=== PATIENT | male | born 1990 | race Caucasian/White ===

== ENCOUNTER 2018-10-16 11:27 | Inpatient (IN) ==
[2018-10-16 17:31] LABS: UR AMPHETAMINES QUAL NONE DETECTED (NONE DETECT); UR BARBITUATES QUAL NONE DETECTED (NONE DETECT); UR BENZODIAZEPIN QUAL PRESUMPTIVE POSITIVE (NONE DETECT); UR COCAINE QUAL NONE DETECTED (NONE DETECT); UR METHADONE QUAL PRESUMPTIVE POSITIVE (NONE DETECT); UR METHAMPHETAMINE QUAL NONE DETECTED (NONE DETECT); UR OPIATES QUAL NONE DETECTED (NONE DETECT); UR OXYCODONE QUAL NONE DETECTED (NONE DETECT); UR PCP QUAL NONE DETECTED (NONE DETECT); UR PROPOXYPHENE QUAL NONE DETECTED (NONE DETECT); UR TCA QUAL NONE DETECTED (NONE DETECT)
[2018-10-16 17:40] LABS: URINE SOURCE CLEAN CATCH
[2018-10-16 17:52] LABS: BILIRUBIN URINE NEGATIVE (NEGATIVE); BLOOD URINE NEGATIVE (NEGATIVE); CLARITY CLEAR (CLEAR); COLOR YELLOW; GLUCOSE URINE NEGATIVE (NEGATIVE); KETONE URINE NEGATIVE (NEGATIVE); LEUKOCYTES URINE TRACE (NEGATIVE); NITRITE URINE NEGATIVE (NEGATIVE); PROTEIN URINE NEGATIVE (NEGATIVE); UROBILINOGEN URINE NORMAL
[2018-10-16 17:58] LABS: URINE BACTERIA 1+ /HFP; URINE CAST NONE SEEN /LPF; URINE CRYSTAL NONE SEEN /HPF; URINE EPITHELIAL CELLS <10 /HPF (<10); URINE WBC <10 /HPF (<10); URINE YEAST NONE SEEN /HPF
[2018-10-16 18:00] LABS: UR CANNABINOIDS QUAL NONE DETECTED (NONE DETECT)
[2018-10-16] MEDS ORDERED: SENOKOT PO PRN (18:21)
[2018-10-16] MEDS ORDERED: LIBRIUM PO PRN (18:21)
[2018-10-16] MEDS ORDERED: DESYREL PO PRN (18:21)
[2018-10-16] MEDS ORDERED: IMODIUM PO PRN (18:21)
[2018-10-16] MEDS ORDERED: D5W 1,000 ML IV PRN (18:21)
[2018-10-16] MEDS ORDERED: PHENOBARBITAL IV PRN (18:21)
[2018-10-16] MEDS ORDERED: ZOFRAN IM PRN (18:21)
[2018-10-16] MEDS ORDERED: TUBERSOL ID ONE (18:21)
[2018-10-16] MEDS ORDERED: MAALOX PLUS LIQUID PO PRN (18:21)
[2018-10-16] MEDS ORDERED: DULCOLAX PR PRN (18:21)
[2018-10-16] MEDS ORDERED: BENTYL PO PRN (18:21)
[2018-10-16 19:04] LABS: HEMATOCRIT 39.8 % (42.0-52.0); HEMOGLOBIN 12.9 g/dL (14.0-18.0); MCH 28.5 PG (27-31); MCHC 32.4 g/dL (33-37); MCV 88.1 FL (81-99); MPV 9.2 FL (7.4-10.4); RBC 4.52 XMIL (4.7-6.1); RDW 12.7 % (11.5-14.5); WBC 5.85 X1000 (4.8-10.8)
[2018-10-16 19:15] LABS: INR 0.9; PROTIME 12.6 Seconds (11.0-16.0)
[2018-10-16 19:17] LABS: AMYLASE 58 U/L (20-200); LIPASE 23 U/L (13-60)
[2018-10-16 19:20] LABS: AGAP 9; ALKALINE PHOSPHATASE 145 U/L (32-122); BUN 11 mg/dL (8-22); CALCIUM 8.5 mg/dL (8.8-10.2); CHLORIDE 100 mmol/L (98-107); COSMO 281; CREATININE 0.7 mg/dL (0.7-1.2); ESTIMATED GFR > 60; GLUCOSE 72 mg/dL (70-104); GOT 147 U/L (10-34); GPT 221 U/L (10-44); POTASSIUM 4.8 mmol/L (3.5-5.1); SODIUM 142 mmol/L (136-145); TCO2 33 mmol/L (25-35); TOTAL PROTEIN 7.1 g/dL (6.3-8.3)
[2018-10-16] MEDS: LIBRIUM PO SCH (21:33)
[2018-10-17] MEDS: LIBRIUM PO SCH ×4 (00:40→18:03)
[2018-10-17] MEDS: PROTONIX PO SCH (06:38)
[2018-10-17] MEDS: THERA M PLUS PO SCH (09:47)
[2018-10-17] MEDS: FOLIC ACID PO SCH (09:47)
[2018-10-17] MEDS: VITAMIN B-1 PO SCH (09:47)
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
[2018-10-17] MEDS: NICODERM PATCH TD PRN (13:49)
--- NOTE | 2018-10-17 14:33 | PROGRESS NOTE ---
DATE: 10/17/2018 SUBJECTIVE: The patient states that he is feeling a little bit better. Denies any current fevers or chills. States his muscle aches have improved. OBJECTIVE: Vital Signs: Temperature 97.1 pulse 61, respiratory rate 18, blood pressure 114/59. General: The patient is awake, alert. He is in no distress. HEENT: Normocephalic. Neck: Supple. Cardiovascular: Regular rate. No murmurs. Chest: Clear, nonlabored. Abdomen: Soft, nondistended. Extremities: Moves all extremities. Neurologic: No changes. ASSESSMENT: 1. Nausea and vomiting. 2. Abdominal pain. 3. Myalgias. 4. Paresthesias. 5. Paroxysmal sweating. 6. Opiate abuse. 7. Others. PLAN: We will continue the patient in the hospital. Continue to follow. We will continue Librium taper. Further orders as needed. Continue counseling. cc: Benedict Daniels MD
[2018-10-18] MEDS: LIBRIUM PO SCH ×3 (02:30→17:45)
[2018-10-18] MEDS: TYLENOL PO PRN (02:36)
[2018-10-18] MEDS: PROTONIX PO SCH (06:33)
[2018-10-18 07:08] LABS: HEMATOCRIT 43.5 % (42.0-52.0); HEMOGLOBIN 14.2 g/dL (14.0-18.0); MCH 28.9 PG (27-31); MCHC 32.6 g/dL (33-37); MCV 88.4 FL (81-99); MPV 9.4 FL (7.4-10.4); RBC 4.92 XMIL (4.7-6.1); RDW 12.7 % (11.5-14.5); WBC 4.85 X1000 (4.8-10.8)
[2018-10-18 07:30] LABS: AGAP 7; ALBUMIN 3.8 g/dL (3.5-5.0); ALKALINE PHOSPHATASE 133 U/L (32-122); BUN 9 mg/dL (8-22); CALCIUM 9.1 mg/dL (8.8-10.2); CHLORIDE 103 mmol/L (98-107); COSMO 278; CREATININE 0.6 mg/dL (0.7-1.2); ESTIMATED GFR > 60; GLUCOSE 71 mg/dL (70-104); GOT 183 U/L (10-34); GPT 242 U/L (10-44); POTASSIUM 4.9 mmol/L (3.5-5.1); SODIUM 141 mmol/L (136-145); TCO2 31 mmol/L (25-35); TOTAL PROTEIN 7.2 g/dL (6.3-8.3)
[2018-10-18] MEDS ORDERED: RELISTOR SUBQ ONE (09:35)
[2018-10-18] MEDS: VITAMIN B-1 PO SCH (10:00)
[2018-10-18] MEDS: FOLIC ACID PO SCH (10:00)
[2018-10-18] MEDS: THERA M PLUS PO SCH (10:00)
[2018-10-18] MEDS: ATARAX PO PRN (10:10)
--- NOTE | 2018-10-18 11:08 | Diag Imaging Result Doc PS360 ---
EXAM: KUB ABDOMEN INDICATION: pain TECHNIQUE: 2 views COMPARISON: None. FINDINGS: There is abundant stool throughout the colon suggesting possible moderate to severe constipation. There is no obstructive bowel pattern. There is no evidence of large volume free abdominal gas. There is no discrete organomegaly. IMPRESSION: Suggestion of constipation. Electronically signed by Franko Norris 10/18/2018 11:06 AM
[2018-10-19] MEDS: LIBRIUM PO SCH ×3 (02:40→22:41)
[2018-10-19] MEDS: PROTONIX PO SCH (06:02)
[2018-10-19] MEDS: VITAMIN B-1 PO SCH (09:10)
[2018-10-19] MEDS: THERA M PLUS PO SCH (09:10)
[2018-10-19] MEDS: FOLIC ACID PO SCH (09:10)
[2018-10-19] MEDS: MOTRIN PO PRN ×2 (09:26→22:50)
--- NOTE | 2018-10-19 11:34 | PROGRESS NOTE ---
DATE: 10/18/2018 SUBJECTIVE: Patient notes overall he is doing a lot better. Still having some withdrawal symptoms, but symptoms have improved. States he is having abdominal pain. States he has had chronic constipation due to the methadone and has not had a bowel movement the past several days. OBJECTIVE: Vital Signs: Reviewed. He is afebrile. Temperature 97.5 degrees pulse 61, respiratory rate 18, blood pressure 114/59. General: Patient is awake, alert, currently in no distress. HEENT: Normocephalic. Neck: Supple. Cardiovascular: Regular rate. Chest: Nonlabored, clear. Abdomen: Nondistended. Extremities: Moves all extremities. ASSESSMENT: 1. Hepatitis C with acute and likely chronic elevations of his liver functions. 2. Constipation, due to chronic opioid use. We will add Relistor. 3. Polysubstance use and abuse. We will continue Librium taper and continue to follow. cc: Benedict Daniels MD
[2018-10-19] MEDS ORDERED: SUBUTEX SL ONE (12:07)
[2018-10-19 12:53] LABS: HEPATITIS PROFILE ACUTE SEE COMMENTS
--- NOTE | 2018-10-19 13:26 | PROGRESS NOTE ---
DATE: 10/19/2018 SUBJECTIVE: Patient notes that he had increased withdrawal symptoms last night with muscle aches, sweating, diarrhea, and fatigue. PHYSICAL EXAMINATION: Vital Signs: Reviewed. General: He is awake, alert. He is in no current respiratory distress. HEENT: Normocephalic. Neck: Supple. Cardiovascular: Regular rate. No murmurs. Chest: Clear. Abdomen: Soft. Extremities: Moves all extremities. ASSESSMENT: 1. Nausea and vomiting. 2. Abdominal pain. 3. Myalgias. 4. Paresthesias. 5. Opiate withdrawal, methadone. PLAN: We will add a small dose of Subutex to see if we can get Mr. Chacko back under control from his withdrawal symptoms. Discussed with him that methadone is quite difficult to come off of and takes a longer period of time. We will use low-dose Subutex as well as Librium and follow. cc: Benedict Daniels MD
[2018-10-19] MEDS: SINEMET 25/100 PO PRN (15:05)
[2018-10-19] MEDS: ATARAX PO PRN ×2 (15:05→22:41)
[2018-10-19] MEDS ORDERED: TORADOL IV ONE (15:13)
[2018-10-19] MEDS ORDERED: LIBRIUM PO ONE (15:43)
[2018-10-19] MEDS: ROBAXIN PO PRN (18:06)
[2018-10-19] MEDS ORDERED: SUBUTEX SL SCH (21:00)
[2018-10-19] MEDS: SEROQUEL PO PRN (21:03)
[2018-10-20] MEDS: PROTONIX PO SCH (06:10)
[2018-10-20] MEDS ORDERED: TORADOL IV PRN (08:05)
[2018-10-20] MEDS: THERA M PLUS PO SCH (08:08)
[2018-10-20] MEDS: FOLIC ACID PO SCH (08:09)
[2018-10-20] MEDS: VITAMIN B-1 PO SCH (08:09)
[2018-10-20] MEDS ORDERED: SUBUTEX SL SCH (09:00)
[2018-10-20] MEDS: LIBRIUM PO SCH ×3 (09:19→18:10)
[2018-10-20] MEDS: ROBAXIN PO PRN (12:06)
[2018-10-20] MEDS: TYLENOL PO PRN (12:06)
--- NOTE | 2018-10-20 19:28 | PROGRESS NOTE ---
DATE: 10/20/2018 SUBJECTIVE: Patient states he still feels terrible, still lots of muscle aches. He is unsure if medicine yesterday made him better or worse. Denies any current fevers. States his muscle pain is better currently. PHYSICAL: Vital signs reviewed. He is awake, alert. He is in no current respiratory distress. Temperature 98.4 degrees, pulse 67, respiratory 18, BP 106/65.General: Patient is awake, alert, he is pleasant regular rate. Chest: Clear. Abdomen: Soft. Extremities: Moves all extremities. ASSESSMENT: 1. Nausea, vomiting. 2. Abdominal pain. 3. Myalgias. 4. Paresthesias. 5. Paroxysmal sweating. 6. Opiate abuse with methadone. PLAN: Will continue Librium, continue to wean. Further orders as needed. cc: Benedict Daniels MD MTDD
[2018-10-20] MEDS ORDERED: TORADOL IM PRN (20:04)
[2018-10-20] MEDS: SEROQUEL PO PRN (20:44)
[2018-10-20] MEDS: SINEMET 25/100 PO PRN (20:44)
[2018-10-21] MEDS: PROTONIX PO SCH (06:22)
[2018-10-21] MEDS: LIBRIUM PO SCH ×3 (08:53→17:12)
[2018-10-21] MEDS: THERA M PLUS PO SCH (08:53)
[2018-10-21] MEDS: VITAMIN B-1 PO SCH (08:53)
[2018-10-21] MEDS: FOLIC ACID PO SCH (08:53)
[2018-10-21] MEDS: SINEMET 25/100 PO PRN (17:12)
[2018-10-21] MEDS: MOTRIN PO PRN (17:12)
[2018-10-21] MEDS: SEROQUEL PO PRN (21:24)
[2018-10-21] MEDS: ROBAXIN PO PRN (21:24)
[2018-10-21] MEDS: NICODERM PATCH TD PRN (21:27)
--- NOTE | 2018-10-21 22:12 | PROGRESS NOTE ---
DATE: 10/21/2018 SUBJECTIVE: The patient notes he still feels terrible, still having muscle aches. PHYSICAL EXAMINATION: Vital Signs: Reviewed he is awake, alert. He is in no current respiratory distress. HEENT: Normocephalic. Neck: Supple. Cardiovascular: Regular rate. Chest: Clear and nonlabored. Abdomen: Soft. Extremities: Moves all extremities. ASSESSMENT: 1. Nausea and vomiting. 2. Myalgias. 3. Paresthesias. 4. Paroxysmal sweating. 5. Opiate abuse withdrawal and stabilization. PLAN: We will continue Librium. Subutex at this point. Certainly expect a large portion of the patient's withdrawal symptoms are due to depressive-type symptoms. We will continue him in the hospital today, continue to wean his symptomatic medications. Continue Toradol as needed. Hopefully, he can discharge home in the morning. Continue counseling. cc: Benedict Daniels MD
[2018-10-22] MEDS: PROTONIX PO SCH (06:22)
[2018-10-22] MEDS: ROBAXIN PO PRN (06:24)
[2018-10-22] MEDS: MOTRIN PO PRN (06:24)
[2018-10-22 08:01] VITALS: BP 113/62
--- NOTE | 2018-10-23 07:43 | DISCHARGE SUMMARY ---
ADMISSION DATE: 10/16/2018 DISCHARGE DATE: 10/22/2018 DISCHARGE DIAGNOSES: 1. Nausea. 2. Abdominal pain. 3. Myalgias. 4. Paresthesias. 5. Paroxysmal sweating. 6. Chronic opiate use and withdrawal. CONSULTATIONS: None. PROCEDURES: None. BRIEF HOSPITAL COURSE: Patient is a 28-year-old male who presented to the hospital secondary to significant opiate withdrawal. He had been on methadone up to 140 mg a day and this has been stopped rather quickly. He was having significant withdrawal symptoms, nausea, vomiting, abdominal pain, myalgias. He was admitted to the hospital, placed on high-dose Librium taper. Subutex was used sporadically to assist with withdrawal symptoms just as Toradol was. On discharge, he is awake, alert. He is in no distress. DISPOSITION: Patient will be discharged home. DISCHARGE INSTRUCTIONS: Discussed with him he needs to continue to follow up outpatient with primary care. He will continue Librium taper for the next 3 days and then will stop completely. Use hydroxyzine as needed. Discussed with patient using naltrexone, although he needs to stay off of this for at least 2 to 3 weeks given his high dose of methadone, would expect that it would put him in withdrawal. TIME SPENT: Greater than 30 minutes was spent in total care. cc: Benedict Daniels MD
[2018-10-23 13:41] LABS: HCV BY PCR SEE COMMENTS
== END 2018-10-22 08:15 | disposition home or self-care (01) | DRG 897 ==
LOC: P.MEDSURG 16:37
PROVIDERS: ADMIT Family Medicine; ATTEND Family Medicine
CPT/HCPCS: 74000; 74018; 80053; 80074; 80104; 80301; 80305; 80307; 80320; 81001; 82055; 82150; 83690; 85027; 85610; 87522; A9270; G0431; G0434; G0477; G0480; G6040; J1885